=== PATIENT | female | born 1985 | race Caucasian/White ===

== ENCOUNTER → 2017-04-14 | Outpatient (CLI) | payer OTHER ==
[~2017-04-14] MED LIST: PRENTAB26 PO
== END | disposition home or self-care (01) ==
LOC: C.PAPS 14:43
PROVIDERS: ATTEND Obstetrics & Gynecology
DX: Z34.90 Encounter for supervision of normal pregnancy, unspecified, unspecified trimester (principal); Z11.51 Encounter for screening for human papillomavirus (HPV)

== ENCOUNTER → 2017-04-14 | Outpatient (CLI) | payer OTHER | END | disposition home or self-care (01) | LOC: C.LABSPEC 12:57 | PROVIDERS: ATTEND Obstetrics & Gynecology | DX: Z34.92 Encounter for supervision of normal pregnancy, unspecified, second trimester (principal) ==

== ENCOUNTER → 2017-04-28 | Outpatient (CLI) | payer OTHER ==
[2017-04-28 15:36] LABS: BASO % 0.2 %; BASO ABS # 0.02 K/uL (0-0.2); EOS % 0.8 %; EOS ABS # 0.07 K/uL (0-0.5); HEMATOCRIT 35.8 % (37-47); HEMOGLOBIN 12.6 g/dL (12.0-16.0); IG# 0.02 K/uL (0.00-0.02); LYMPH ABS # 2.11 K/uL (1.2-3.4); MEAN CELL VOLUME 86.1 fL (80-100); MEAN CORPUSCULAR HEMOGLOBIN 30.3 pg (25-34); MEAN CORPUSCULAR HGB CONC 35.2 g/dl (32-36); MEAN PLATELET VOLUME 9.1 fL (7.4-10.4); MONO % 4.5 %; MONO ABS # 0.41 K/uL (0.11-0.59); NEUT % 71.3 %; NEUT ABS # 6.54 K/uL (1.4-6.5); PLATELET COUNT 298 K/uL (130-400); RED CELL DISTRIBUTION WIDTH CV 13.6 % (11.5-14.5); RED CELL DISTRIBUTION WIDTH SD 42.5 fL (36.4-46.3); WHITE BLOOD COUNT 9.17 K/uL (4.8-10.8)
== END | disposition home or self-care (01) ==
LOC: C.LAB1850 13:26
PROVIDERS: ATTEND Obstetrics & Gynecology
DX: Z34.92 Encounter for supervision of normal pregnancy, unspecified, second trimester (principal)

== ENCOUNTER → 2017-07-18 | Outpatient (CLI) | payer OTHER | END | disposition home or self-care (01) | LOC: C.LABSPEC 10:49 | PROVIDERS: ATTEND Obstetrics & Gynecology | DX: O09.43 Supervision of pregnancy with grand multiparity, third trimester (principal); Z3A.00 Weeks of gestation of pregnancy not specified ==

== ENCOUNTER → 2017-07-19 | Outpatient (CLI) | payer OTHER ==
[2017-07-19 10:41] LABS: HEMATOCRIT 35.2 % (37-47); HEMOGLOBIN 11.9 g/dL (12.0-16.0)
== END | disposition home or self-care (01) ==
LOC: C.LAB1850 08:43
PROVIDERS: ATTEND Obstetrics & Gynecology
DX: O09.43 Supervision of pregnancy with grand multiparity, third trimester (principal); Z3A.00 Weeks of gestation of pregnancy not specified

== ENCOUNTER 2017-10-11 01:05 | Inpatient (IN) | payer OTHER ==
[~2017-10-11] VITALS: Ht 165.1 cm; Wt 76.3 kg
[2017-10-13 08:20] VITALS: Ht 165.1 cm; Wt 76.3 kg
[2017-10-13] MEDS ORDERED: LACTATED RINGER'S 1000ML 1,000 ML IV SCH (08:25)
[2017-10-13] MEDS ORDERED: LACTATED RINGER'S 1000ML 1,000 ML IV PRN (08:25)
[2017-10-13] MEDS ORDERED: LACTATED RINGER'S 1000ML 500 ML IV PRN ×2 (08:25→10:20)
[2017-10-13] MEDS ORDERED: OXYTOCIN 30 UNITS/500ML NSS IV PRN ×2 (08:30→14:30)
[2017-10-13 08:53] LABS: MEAN CORPUSCULAR HGB CONC 31.6 g/dl (32-36)
[2017-10-13] MEDS ORDERED: EpHEDrine SULFATE INJ 50 MG/ML AMP ONE (08:54)
[2017-10-13] MEDS ORDERED: BUPIVACAINE 0.25% 30 ML VIAL ONE (08:54)
[2017-10-13] MEDS ORDERED: FENTANYL CITRATE INJ 50 MCG/1 ML 2 ML VIAL ONE (08:55)
[2017-10-13] MEDS ORDERED: FENTANYL 2MCG/ML ROPIV 1.25MG/ML 100ML BAG ONE (08:56)
[2017-10-13 09:14] LABS: HEMATOCRIT 35.4 % (37-47); HEMOGLOBIN 11.2 g/dL (12.0-16.0); MEAN CELL VOLUME 82.5 fL (80-100); MEAN CORPUSCULAR HEMOGLOBIN 26.1 pg (25-34); RED CELL DISTRIBUTION WIDTH CV 15.1 % (11.5-14.5); RED CELL DISTRIBUTION WIDTH SD 44.4 fL (36.4-46.3); WHITE BLOOD COUNT 7.33 K/uL (4.8-10.8)
[2017-10-13 09:16] LABS: MEAN PLATELET VOLUME 10.6 fL (7.4-10.4); PLATELET COUNT 210 K/uL (130-400)
--- NOTE | 2017-10-13 09:29 | History and Physical ---
History & Physical Date & Time of Service: Oct 13, 2017 at 09:00 Chief Complaint: Induction Primary Care Physician: No Doctor, Assigned History of Present Illness Source: patient 32yo , JIMMY 10/11/2017 by ultrasound on 04/14/2017, 40.2 weeks GA for post dates induction. course unremarkable. Blood type is B-, Antibody negative, Rubella immune, Hep B neg, declined Quad screen, GBS negative. Past Medical/Surgical History Medical Problems: Post-term Social History Smoking Status: Never Smoker Allergies Coded Allergies: Latex1 -Allergic Contact Dermititis (Verified Allergy, Mild, RASH, 10/13/17) Home Medications Scheduled Multivit/Min/Iron/Fol Ac/Pren ( Vitamin), 1 TAB PO DAILY Physical Exam Abdomen: gravid, vertex, +FHTs : 4.0/80/-2 Diagnostics Laboratory Results Results Past 24 Hours Test 10/13/17 08:41 Range/Units Mean Corpuscular Hemoglobin Concent 31.6 32-36 g/dl Impression Assessment and Plan 40.2 weeks GA for post dates induction. Oxytocin IV 30U PRN Anticipate Advanced Directives Existing Living Will: No Existing Power of Foreign Language Professor: No Resuscitation Status
--- NOTE | 2017-10-13 09:36 | Progress Note ---
Progress Note Date of Service Oct 13, 2017. (Umm Cortes MD) Progress Note 32yo , JIMMY 10/11/2017 by ultrasound on 04/14/2017, 40.2 weeks GA for post dates induction. course unremarkable. Blood type is B-, Antibody negative, Rubella immune, Hep B neg, declined Quad screen, GBS negative. O: Abdomen: gravid, vertex, +FHTs : 4.0/80/-2 A/P: 40.2 weeks GA for post dates induction. Oxytocin IV 30U PRN Anticipate (Umm Cortes MD) Note oxytocin is used according to dilute pitocin titration protocol, NOT as a 30u bolus. (Meghann Lai MD)
[2017-10-13] MEDS ORDERED: NALOXONE HCL INJ 1 MG in SODIUM CHLORIDE 0.9% 1000ML 1,000 ML IV PRN (10:20)
[2017-10-13] MEDS ORDERED: FENTANYL 2MCG/ML ROPIV 1.25MG/ML 100ML BAG EPI PRN (10:30)
[2017-10-13] MEDS ORDERED: ONDANSETRON INJ 2 MG/ML 2 ML VIAL IV PRN (10:30)
[2017-10-13] MEDS ORDERED: EpHEDrine SULFATE INJ 50 MG/ML AMP IV PRN (10:30)
[2017-10-13] MEDS ORDERED: NALOXONE HCL INJ 0.4 MG/1 ML VIAL/CARP IV PRN (10:30)
[2017-10-13] MEDS ORDERED: NALBUPHINE HCL INJ 10 MG/ML 1ML AMP IV PRN (10:30)
[2017-10-13] MEDS ORDERED: DiphenhydrAMINE HCL 50 MG/ML VIAL IV PRN (10:30)
[2017-10-13] MEDS ORDERED: OXYTOCIN INJ 20 UNITS in LACTATED RINGER'S 1000ML 1,000 ML IV SCH (14:22)
[2017-10-13] MEDS ORDERED: SUPERCREAM 0.870 % 15GM JAR EXT PRN (14:30)
[2017-10-13] MEDS ORDERED: ACETAMINOPHEN 325 MG TAB PO PRN (14:30)
[2017-10-13] MEDS ORDERED: BENZOCAINE 20% AER SPR 82.5 GM CAN EXT PRN (14:30)
[2017-10-13] MEDS ORDERED: LANOLIN OINT EXT PRN (14:30)
[2017-10-13] MEDS ORDERED: OXYCODONE/ACETAMINOPHEN 5-325 TAB PO PRN (14:30)
[2017-10-13] MEDS ORDERED: DIPHTHERIA/TETANUS/PERTUSSIS 0.5 ML SYR/VIAL IM. ONE (14:30)
[2017-10-13] MEDS ORDERED: HYDROCORTISONE ACETATE 25 MG SUPP PR PRN (14:30)
--- NOTE | 2017-10-13 14:30 | DELIVERY SUMMARY ---
DATE OF OPERATION: 10/13/2017 The patient dilated to complete and pushed to deliver a viable male , Apgars 9 and 10 via over small second-degree perineal laceration. Mouth and nose bulb suctioned at the perineum. Shoulders and body delivered with ease. The was vigorous and crying at . Cord clamped at 30 seconds of life and infant to maternal abdomen, where the cord was then doubly clamped and then cut. Cord blood obtained. The placenta was delivered spontaneously and intact. 3-vessel cord. Hemostasis achieved with dilute Pitocin and uterine massage. Cervix and sulci intact. Small second-degree perineal laceration repaired in a usual fashion using 3-0 Vicryl. Another small laceration to the left of the urethra was hemostatic and was not repaired. The EBL was 300 mL. Mother and baby stable in recovery. I attest to the content of the Intraoperative Record and any orders documented therein. Any exception s are noted below.
--- NOTE | 2017-10-13 16:05 | Anesthesia Procedure Note ---
Anesthesia Epidural Removal Nt Date & Time Oct 13, 2017 at 16:05 Vital Signs Pain Intensity: 0.0 Notes Mental Status: alert / awake / arousable, participated in evaluation Nausea / Vomiting: adequately controlled Pain: adequately controlled Airway Patency, RR, SpO2: stable & adequate BP & HR: stable & adequate Hydration State: stable & adequate Neuraxial Anesthesia: was administered Anesthetic Complications: no major complications apparent, pt satisfied with anesthetic care Epidural: removed without complications, with tip intact
[2017-10-13 17:00] VITALS: BP 107/69; PULSE 69; TEMP 36.8
[2017-10-13 20:20] VITALS: BP 108/68; PULSE 64; TEMP 36.5; O2SAT 99
[2017-10-13] MEDS: DOCUSATE SODIUM 100 MG CAP PO SCH (20:27)
[2017-10-13] MEDS: IBUPROFEN 600 MG TAB PO PRN (21:55)
[2017-10-13 23:20] VITALS: BP 107/69; PULSE 50; TEMP 36.4; O2SAT 100
[2017-10-14 03:00] VITALS: BP 106/73; PULSE 52; TEMP 36.4; O2SAT 99
--- NOTE | 2017-10-14 06:34 | OB/GYN Progress Note ---
HOME HEALTH RN Progress Note Date of Service Oct 14, 2017. Subjective conversation w/ patient Ambulation: ambulating normally Voiding: no voiding problems Passing Gas: Yes Diet Tolerance: Regular Diet Lochia: Moderate Pain: Improving Review of Systems Respiratory: No shortness of breath Cardiac: No chest pain, No palpitations Female : No dysuria Objective Vital Signs Date Time Temp Pulse Resp B/P (MAP) Pulse Ox O2 Delivery O2 Flow Rate FiO2 10/14/17 03:00 36.4 52 18 106/73 (84) 99 Room Air 10/13/17 23:20 36.4 50 18 107/69 (82) 100 Room Air 10/13/17 23:20 100 Room Air 10/13/17 20:20 36.5 64 18 108/68 (81) 99 Room Air 10/13/17 20:20 99 Room Air 10/13/17 17:30 Room Air 10/13/17 17:00 36.8 69 18 107/69 (82) Room Air Physical Exam General Appearance: WELL-APPEARING, NO APPARENT DISTRESS Respiratory/Chest: lungs clear, normal breath sounds Cardiovascular: regular rate, rhythm, no murmur Abdomen: soft Fundus: Firm (at umbilicus) Laboratory Results Last 24 Hours Test 10/13/17 08:41 White Blood Count 7.33 K/uL Red Blood Count 4.29 M/uL Hemoglobin 11.2 g/dL Hematocrit 35.4 % Mean Corpuscular Volume 82.5 fL Mean Corpuscular Hemoglobin 26.1 pg Mean Corpuscular Hemoglobin Concent 31.6 g/dl RDW Standard Deviation 44.4 fL RDW Coefficient of Variation 15.1 % Platelet Count 210 K/uL Mean Platelet Volume 10.6 fL Platelet Estimate NORMAL Assessment and Plan Day Number: 1 Continue Routine Care: Analgesia PRN Escalate diet Ambulation encouraged Resident Physician Supervision Note: I interviewed and examined the patient. Discussed with Dr. Cortes and agree with findings and plan as documented in the note. Any exceptions or clarifications are listed here: Patient desires discharge today, instructions reviewed Documented By: Meghann Lai
--- NOTE | 2017-10-14 06:41 | Discharge Instructions ---
Discharge Instructions Date of Service Oct 14, 2017. Admission Reason for Admission: Induction Discharge Discharge Diagnosis / Problem: Vaginal Delivery Discharge Goals Goal(s): Routine recovery after delivery Medications Continue Dispensed Medications: supercream, dermaplast, tucks, lansinoh Activity Recommendations Activity Limitations: per Instructions/Follow-up section . Instructions / Follow-Up Instructions / Follow-Up ACTIVITY RECOMMENDATIONS: * Gradual return to full activity over the next 2-3 weeks. * No lifting - nothing heavier than baby over the next 2-3 weeks. * Do not engage in vigorous exercise, sexual activity or sports until cleared by your physician. * Do not drive or operate any motorized equipment until cleared by your physician. * You may shower/bathe daily. MEDICATIONS: For discomfort or pain, you may use Acetaminophen (Tylenol), Ibuprofen (Advil), or Naproxen (Aleve) following the package directions. For constipation you may use Colace following the package directions. BREAST CARE: If you are not breast feeding: * Wear a supportive bra 24 hours a day for one to two weeks. * Avoid stimulating your breasts and nipples as much as possible during the first few weeks after delivery. * When taking a shower, have the warm water hit your back, not breasts. * When your breasts feel full, apply ice packs. Usually three to four times a day helps ease the discomfort. * Take a mild pain medication (Tylenol / Motrin) when you are uncomfortable. If breast feeding: * Use breast milk to lubricate nipples. Lansinoh cream may be used for sore nipples. You do not need to remove cream prior to breast feeding. If using a different brand of cream, check the label for directions regarding removal of cream prior to nursing. * Wear a supportive bra. * If having problems with breasts or breast feeding, call a provider contracting consultant or your health care provider. EPISIOTOMY CARE: After delivery, if you have an episiotomy (stitches), the following steps will ease discomfort and aid healing. * For the first 24 hours after delivery, place ice packs next to your episiotomy to help reduce swelling. * After the first 24 hour-period, sitz baths, either portable or in the tub, are suggested. A shower with a shower arm sprayed over the episiotomy may be comforting. * Ayah care should be done after each voiding and bowel movement. Squirt warm water from a plastic bottle over the perineum (region of the body between the anus and urinary opening) and pat dry. * Use Dermoplast to ease discomfort. Shake container. [place] directly over the episiotomy. Place a Tucks on a clean sanitary pad next to your episiotomy. SPECIAL CARE INSTRUCTIONS: When you are discharged from the hospital, it is important for you to follow the instructions listed below: * During the first week at home, you should be able to care for yourself and your baby. In addition, the usual light household activities are encouraged. * Limit your activities to the way you feel. Do not try to clean the house or move furniture. Be sensible. * If you actively engage in sports and have done so up until the time of your delivery, you may resume these activities as soon as you feel able. This may take up to one month or even longer. Use good judgment. * Continue to take your vitamins for at least six weeks after the of your baby. * Your diet need not be limited unless you were on a special diet before your delivery. Breast-feeding mothers need around 2500 calories per day and at least 64-80 ounces of fluid per day (8 to 10 glasses). * You should eat foods from the four major food groups. Crash diets or fad diets are to be avoided. Eating lean meats, fresh fruits and vegetables, low-fat dairy products, high fiber foods and a regular exercise program, will help you get back to your pre- weight without putting your health at risk. * Constipation is sometimes a problem after delivery. Take a mild laxative as needed. If breast feeding, Milk of Magnesia is acceptable to use. You may use a suppository or Fleets enema if no episiotomy. * A daily shower or tub bath is suggested. Be sure to thoroughly and gently dry the perineum. * A bloody vaginal discharge will usually continue until around four weeks post . A small amount of bleeding may continue for as long as six weeks. Vaginal discharge changes from the bright red bleeding after delivery to pink then brownish and finally yellowish-pink before becoming white and disappearing. * Bleeding may increase with activity. Your first period may come in 4-8 weeks. If you are breast feeding, your period may be delayed even longer. * [place] (sex) can begin whenever both you and your partner feel comfortable and do not have any form of genital infection. It is recommended that you wait at least six weeks for internal and external healing to occur. If you have questions, please talk to your health care practitioner. A condom should be used to prevent infection and . * Foreplay, gentle intercourse and lubrication is very important the first several times to prevent pain. A water-based lubricant such as K-Y jelly or Astroglide may be used. * If you have RH negative blood and your baby is RH positive, you will receive RHOGAM by injection prior to discharge. The nurse will give you a card to keep with you that has the date and place that you received RHOGAM after delivery. * During your care, you had a Rubella screen done to check for the presence of rubella antibodies in your blood. If your test was negative, you will receive a Rubella vaccine prior to discharge. This vaccine may cause a fever, soreness at the injection site and flu-like symptoms. If these symptoms persist, notify your health care practitioner. is not advised for one month after a Rubella vaccine. * Verbalizes understanding of car seat law as reviewed with patient nursing. * Car Seat hand-out given and reviewed with patient by nursing. * Shaken baby information reviewed with patient by nursing. Call you doctor if: * Heavy bleeding (saturating several pads an hour) or passing clots the size of your fist. * A fever >101 degrees F (38.3 degrees C) on two occasions four hours apart and /or chills. * Unusual pain in the pelvic or vaginal areas. * "Baby Blues" lasting longer than two weeks. If you have any questions or concerns, call your health care practitioner at . FOLLOW UP VISIT: * Please call the office at to schedule a 6 week examination. It is important you keep this appointment. It is important for you to make arrangements for either yearly or twice yearly check-ups thereafter. Current Hospital Diet Patient's current hospital diet: Regular OB Diet Discharge Diet Recommended Diet: Regular OB Diet Pending Studies Studies pending at discharge: no Medical Emergencies . Who to Call and When: Medical Emergencies: If at any time you feel your situation is an emergency, please call 911 immediately. . Non-Emergent Contact Non-Emergency issues call your: Primary Care Provider . . "Provider Documentation" section prepared by Umm Cortes. .
[2017-10-14] MEDS: IBUPROFEN 600 MG TAB PO PRN ×2 (07:51→13:48)
[2017-10-14] MEDS: DOCUSATE SODIUM 100 MG CAP PO SCH (07:51)
[2017-10-14 07:55] VITALS: BP 108/73; PULSE 64; TEMP 36.4
[2017-10-14 11:15] VITALS: BP 100/65; PULSE 61; TEMP 36.4
[2017-10-14 15:35] VITALS: BP 100/68; PULSE 58; TEMP 36.8
[2017-10-14 18:50] VITALS: BP_DIAS 68; PULSE 58; TEMP 36.8
== END 2017-10-14 18:55 | disposition home or self-care (01) | DRG 775 ==
LOC: C.LD 10-13 07:54 → C.OBG 10-13 17:06
PROVIDERS: ADMIT Obstetrics & Gynecology; ATTEND Obstetrics & Gynecology
PROC: 0KQM0ZZ Repair Perineum Muscle, Open Approach (ICD-10-PCS; principal; 2017-10-13)
PROC: 3E033VJ Introduction of Other Hormone into Peripheral Vein, Percutaneous Approach (ICD-10-PCS; principal; 2017-10-13)
PROC: 10E0XZZ Delivery of Products of Conception, External Approach (ICD-10-PCS; 2017-10-13)
DX: O48.0 Post-term pregnancy (principal); O70.1 Second degree perineal laceration during delivery; O09.893 Supervision of other high risk pregnancies, third trimester; O09.43 Supervision of pregnancy with grand multiparity, third trimester; Z3A.40 40 weeks gestation of pregnancy; Z37.0 Single live birth

== ENCOUNTER 2017-10-19 13:13 | Emergency (ER) | payer OTHER ==
[~2017-10-19] VITALS: Ht 165.1 cm; Wt 68.7 kg
[2017-10-19 13:15] VITALS: TEMP 36.7; Ht 165.1 cm; Wt 68.7 kg
[2017-10-19 13:49] LABS: BASO % 0.2 %; BASO ABS # 0.02 K/uL (0-0.2); EOS % 1.1 %; EOS ABS # 0.09 K/uL (0-0.5); HEMATOCRIT 42.9 % (37-47); HEMOGLOBIN 13.6 g/dL (12.0-16.0); IG# 0.01 K/uL (0.00-0.02); LYMPH % 27.8 %; LYMPH ABS # 2.33 K/uL (1.2-3.4); MEAN CELL VOLUME 84.4 fL (80-100); MEAN CORPUSCULAR HEMOGLOBIN 26.8 pg (25-34); MEAN CORPUSCULAR HGB CONC 31.7 g/dl (32-36); MEAN PLATELET VOLUME 12.1 fL (7.4-10.4); MONO % 5.1 %; MONO ABS # 0.43 K/uL (0.11-0.59); NEUT % 65.7 %; NEUT ABS # 5.51 K/uL (1.4-6.5); PLATELET COUNT 240 K/uL (130-400); RED CELL DISTRIBUTION WIDTH SD 46.3 fL (36.4-46.3); WHITE BLOOD COUNT 8.39 K/uL (4.8-10.8)
[2017-10-19 14:06] LABS: CALCIUM 8.2 mg/dl (8.5-10.1); CREATININE 0.57 mg/dl (0.60-1.20); POTASSIUM 4.3 mmol/L (3.5-5.1)
--- NOTE | 2017-10-19 14:18 | EMERGENCY ROOM VISIT NOTE ---
History First contact with patient: 13:18 Chief Complaint: LEG PAIN,LEG INJURY Stated Complaint: PAIN/SORENESS IN RIGHT CALF History of Present Illness The patient is a 32 year old female who presents to the Emergency Room with complaints of right calf pain and soreness. The patient states the symptoms have been ongoing for approximately 1 week. She recently delivered a baby on Monday without complications and was hospitalized only overnight and discharged home the next day. The patient contacted her traffic incident management manager today and was encouraged to come to the emergency department for evaluation. The patient reports very mild pain, but states it has worsened slightly today. She denies any dyspnea or chest pain. She denies any redness, palpable cord, or decreased range of motion. The patient states exercising and stretching seems to worsen the pain. She is taken no medications for her symptoms. She denies any history of blood clots. She has not been taking any oral hormonal medications, nor has she traveled recently. She describes the pain as tight and throbbing and rates at 3/10. She is taken no medications for pain. She denies any cramping sensation. Review of Systems A complete 10 point review of systems was reviewed with the patient with pertinent positives and negatives as per history of present illness. All else were negative. Past Medical/Surgical History Medical Problems: (1) 40 weeks gestation of (2) Normal labor (3) Post term Social History Smoking Status: Never Smoker Smokeless Tobacco Use: No Alcohol Use: none Drug Use: none Marital Status: Housing Status: lives with family Current/Historical Medications Scheduled Multivit/Min/Iron/Fol Ac/Pren ( Vitamin), 1 TAB PO DAILY Physical Exam Vital Signs Date Time Temp Pulse Resp B/P (MAP) Pulse Ox O2 Delivery O2 Flow Rate FiO2 10/19/17 15:35 65 16 105/72 100 10/19/17 15:06 65 16 105/72 100 Room Air 10/19/17 13:15 36.7 86 20 108/75 98 Room Air Physical Exam VITALS: Vitals are noted on the nurse's note and reviewed by myself. Vital signs stable. GENERAL: This is a 32-year-old white female, in no acute distress, nondiaphoretic, well-developed well-nourished. SKIN: The skin was without rashes, erythema, edema, or bruising. There is no tenting of the skin. Capillary reflex less than 2 seconds. HEAD: Normocephalic atraumatic. NECK: Supple without nuchal rigidity. No lymphadenopathy. No thyromegaly. Cervical spine is nontender. No JVD. HEART: Regular rate and rhythm without murmurs gallops or rubs. LUNGS: Clear to auscultation bilaterally without wheezes, rales or rhonchi. No dullness to percussion. No retractions or accessory muscle use. ABDOMEN: Positive bowel sounds x 4. Normal tympanic percussion. Soft, nontender, without masses or organomegaly. Cai sign negative. No guarding or rebound tenderness. MUSCULOSKELETAL: Mild tenderness of the right calf. No palpable cord. No erythema or edema. No muscle atrophy, erythema, or edema noted. Full range of motion without joint tenderness in all extremities. No tenderness to palpation except as noted. Normal gait. Strength 5/5 throughout. NEURO: Patient was alert and oriented to person place and time. Normal sensation to light and sharp touch. Deep tendon reflexes 2+ throughout. No focal neurological deficits. Medical Decision & Procedures ER Provider Diagnostic Interpretation: R VENOUS DOPP LOWER EXT UNILAT CLINICAL HISTORY: 32 years-old Female presenting with right calf pain/swelling. TECHNIQUE: Real-time grayscale and color and spectral Doppler ultrasound imaging of the veins of the right lower extremity was performed. Compression and augmentation were also utilized. COMPARISON: None. FINDINGS: RIGHT: Common femoral vein: Patent. Greater saphenous vein: Patent. Deep femoral vein: Patent. Femoral vein: Patent. Popliteal vein: Patent. Calf veins: Patent. Other: None. IMPRESSION: No evidence of deep venous thrombosis. Electronically signed by: Steven Sanchez M.D. 10/19/2017 2:59 PM Dictated Date/Time: 10/19/2017 2:59 PM Laboratory Results 10/19/17 13:40 Red Blood Count 5.08, Mean Corpuscular Volume 84.4, Mean Corpuscular Hemoglobin 26.8, Mean Corpuscular Hemoglobin Concent 31.7, Mean Platelet Volume 12.1, Neutrophils (%) (Auto) 65.7, Lymphocytes (%) (Auto) 27.8, Monocytes (%) (Auto) 5.1, Eosinophils (%) (Auto) 1.1, Basophils (%) (Auto) 0.2, Neutrophils # (Auto) 5.51, Lymphocytes # (Auto) 2.33, Monocytes # (Auto) 0.43, Eosinophils # (Auto) 0.09, Basophils # (Auto) 0.02 10/19/17 13:40 Test 10/19/17 13:40 White Blood Count 8.39 K/uL (4.8-10.8) Red Blood Count 5.08 M/uL (4.2-5.4) Hemoglobin 13.6 g/dL (12.0-16.0) Hematocrit 42.9 % (37-47) Mean Corpuscular Volume 84.4 fL (80-100) Mean Corpuscular Hemoglobin 26.8 pg (25-34) Mean Corpuscular Hemoglobin Concent 31.7 g/dl (32-36) Platelet Count 240 K/uL (130-400) Mean Platelet Volume 12.1 fL (7.4-10.4) Neutrophils (%) (Auto) 65.7 % Lymphocytes (%) (Auto) 27.8 % Monocytes (%) (Auto) 5.1 % Eosinophils (%) (Auto) 1.1 % Basophils (%) (Auto) 0.2 % Neutrophils # (Auto) 5.51 K/uL (1.4-6.5) Lymphocytes # (Auto) 2.33 K/uL (1.2-3.4) Monocytes # (Auto) 0.43 K/uL (0.11-0.59) Eosinophils # (Auto) 0.09 K/uL (0-0.5) Basophils # (Auto) 0.02 K/uL (0-0.2) RDW Standard Deviation 46.3 fL (36.4-46.3) RDW Coefficient of Variation 15.0 % (11.5-14.5) Immature Granulocyte % (Auto) 0.1 % Immature Granulocyte # (Auto) 0.01 K/uL (0.00-0.02) Anion Gap 5.0 mmol/L (3-11) Est Creatinine Clear Calc Drug Dose 136.7 ml/min Estimated GFR () 141.2 Estimated GFR (Non- 121.8 BUN/Creatinine Ratio 13.7 (10-20) Calcium Level 8.2 mg/dl (8.5-10.1) Magnesium Level 2.4 mg/dl (1.8-2.4) ED Course The patient was seen and evaluated as above. IV access obtained, labs drawn. Imaging performed and reviewed by myself and radiologist as above. Labs reviewed by myself. I discussed the findings with the patient at bedside. Discharge instructions reviewed, the patient was discharged home in good condition. Medical Decision This is a 32-year-old female patient who presents to the emergency department 6 days . She has been experiencing right calf pain and soreness for approximately 1 week. The patient's primary concern is a possible DVT. Given her history, I do feel that workup was warranted. Due to the uncertain nature of the patient's symptoms and her recent delivery, I did feel that checking for electrolyte abnormalities was important. The patient's labs did not reveal any significant leukocytosis, anemia, thrombocytopenia. The patient's renal function and electrolytes were without significant abnormalities. Ultrasound of the right lower extremity did not reveal any thrombus. There are no signs of infection or cellulitis/abscess. I suspect a possible muscular etiology of the patient's symptoms. The patient verbalized agreement and understanding. She was encouraged to treat the discomfort with Tylenol and otherwise follow-up with her PCP for further evaluation and management. All questions answered to patient's satisfaction prior to discharge per Etiologies such as DVT, joint effusion, infection, trauma, muscular, lymphedema , idiopathic, CHF, as well as others were entertained. The chart was completed utilizing [employer] Speech voice recognition software. Grammatical errors, random word insertions, pronoun errors, and incomplete sentences are an occasional consequence of this system due to software limitations, ambient noise, and hardware issues. Any formal questions or concerns about the content, text, or information contained within the body of this dictation should be directly addressed to the provider for clarification. Medication Reconcilliation Current Medication List: was personally reviewed by me Blood Pressure Screening Patient's blood pressure: Normal blood pressure Impression Primary Impression: Right calf pain Departure Information Dispostion Home / Self-Care Condition GOOD Referrals No Doctor, Assigned (PCP) Patient Instructions My [facility] Additional Instructions You were seen in the emergency department today for right calf pain. As discussed, labs and imaging did not reveal any signs of electrolyte abnormality or DVT. You may consider wearing compression stockings for pain and swelling. Use warm compresses on the extremities to help with pain. Follow-up with your PCP regarding ongoing pain or other concerning symptoms. Acetaminophen(Tylenol) may be used for fever or pain. Use 1000mg every six hours as needed. Avoid using more than 3000mg in a 24 hour period. Return to the ED for worsening pain, swelling, redness, fever, chills, nausea, vomiting, or other concerning symptoms.
--- NOTE | 2017-10-19 15:01 | DIAGNOSTIC IMAGING REPORT ---
R VENOUS DOPP LOWER EXT UNILAT CLINICAL HISTORY: 32 years-old Female presenting with right calf pain/swelling. TECHNIQUE: Real-time grayscale and color and spectral Doppler ultrasound imaging of the veins of the right lower extremity was performed. Compression and augmentation were also utilized. COMPARISON: None. FINDINGS: RIGHT: Common femoral vein: Patent. Greater saphenous vein: Patent. Deep femoral vein: Patent. Femoral vein: Patent. Popliteal vein: Patent. Calf veins: Patent. Other: None. IMPRESSION: No evidence of deep venous thrombosis. Electronically signed by: Steven Sanchez M.D. 10/19/2017 2:59 PM Dictated Date/Time: 10/19/2017 2:59 PM
[2017-10-19 15:35] VITALS: BP 105/72; PULSE 65; O2SAT 100
== END 2017-10-19 15:35 | disposition home or self-care (01) ==
LOC: C.EDB 13:14 → C.EDC 15:35
DX: M79.661 Pain in right lower leg (principal)